=== PATIENT | male | born 1945 | race Caucasian/White ===

== ENCOUNTER 2020-08-27 16:06 | Inpatient (IN) | payer OTHER ==
[~2020-08-27] VITALS: Ht 172.7 cm; Wt 88.5 kg
[2020-08-27] MEDS ORDERED: ACETAMINOPHEN ES 500 MG TABLET PO ONE (16:30)
[2020-08-27] MEDS ORDERED: IV NORMAL SALINE 1000 ML BAG IV ONE ×2 (16:30→20:00)
[2020-08-27] MEDS ORDERED: VANCOMYCIN IV 1,000 MG in IV DEXTROSE 5% 250 ML IV ONE (16:45)
[2020-08-27] MEDS ORDERED: levoFLOXacin 750 MG/D5W 150 ML PIGGYBACK IV ONE (16:45)
[2020-08-27] MEDS ORDERED: levoFLOXacin 750MG/D5W 150 ML IV ONE (16:49)
[2020-08-27] MEDS ORDERED: VANCOMYCIN IV 200 ML ONE (16:49)
[2020-08-27] MEDS ORDERED: ACETAMINOPHEN ES 500 MG TABLET ONE (16:49)
[2020-08-27 16:54] LABS: BASOPHILS # (AUTO) 0.1 K/uL (0.0-8.0); BASOPHILS % (AUTO) 0.4 % (0.0-2.0); EOSINOPHILS # (AUTO) 0.1 K/uL (0.0-0.7); EOSINOPHILS % (AUTO) 0.5 % (0.0-7.0); HEMATOCRIT 42.6 % (36.7-47.1); HEMOGLOBIN 14.6 g/dL (12.5-16.3); LYMPHOCYTES # (AUTO) 1.4 K/uL (20.0-40.0); LYMPHOCYTES % (AUTO) 5.4 % (20.5-51.5); MEAN CORPUSCULAR HEMOGLOBIN 31.5 uug (23.8-33.4); MEAN CORPUSCULAR HGB CONC 34 g/dL (32.5-36.3); MEAN CORPUSCULAR VOLUME 92.1 fL (73.0-96.2); MONOCYTES # (AUTO) 1.2 K/uL (2.0-10.0); MONOCYTES % (AUTO) 4.8 % (0.0-11.0); NEUTROPHILS # (AUTO) 22.7 K/uL (1.8-8.9); NEUTROPHILS % (AUTO) 88.9 % (38.5-71.5); PLATELET COUNT (AUTO) 192 K/uL (152-348); RED BLOOD CELL COUNT(AUTO) 4.62 MIL/uL (4.06-5.63); WHITE BLOOD COUNT (AUTO) 25.5 K/uL (3.6-10.2)
[2020-08-27 17:05] LABS: CREATININE 1.3 mg/dL (0.6-1.3); POTASSIUM 3.5 mmol/L (3.5-5.1)
[2020-08-27 17:17] LABS: BILIRUBIN,TOTAL 1.2 mg/dL (0.2-1.0)
[2020-08-27] MEDS ORDERED: ENOXAPARIN SODIUM 80 MG/0.8 ML DISP.SYRIN SQ ONE (17:30)
[2020-08-27] MEDS ORDERED: ENOXAPARIN SODIUM 100 MG/ML DISP.SYRIN SQ ONE (17:38)
[2020-08-27] MEDS ORDERED: SWABABLE VALVE TRANSFER SET EA MC ONE (17:46)
[2020-08-27] MEDS ORDERED: IOHEXOL 350 100 ML INFUS..BTL ONE (17:46)
[2020-08-27] MEDS ORDERED: IV NORMAL SALINE 250 ML IV ONE (17:46)
[2020-08-27 19:20] LABS: BAND % (MANUAL) 6 % (0-10); LYMPHOCYTES % (MANUAL) 4 % (20-40); MONOCYTES % (MANUAL) 1 % (2-10); NEUTROPHILS % (MANUAL) 89 % (42-75)
[2020-08-27] MEDS ORDERED: DILTIAZEM HCL 50 MG IV ONE (19:56)
[2020-08-27] MEDS ORDERED: DILTIAZEM HCL IV 125 MG in IV NORMAL SALINE 100 ML IV STA ×2 (19:59→20:06)
[2020-08-27] MEDS ORDERED: DILTIAZEM HCL 25 MG IV IV ONE (20:00)
[2020-08-27 22:09] VITALS: BP 112/69
[2020-08-27 22:30] VITALS: BP 121/60
[2020-08-27 23:00] VITALS: BP 126/63
[2020-08-27] MEDS ORDERED: MORPHINE SULFATE 2 MG/1 ML DISP.SYRIN IV PRN (23:00)
[2020-08-27] MEDS ORDERED: ACETAMINOPHEN 325 MG TABLET PO PRN (23:00)
[2020-08-27] MEDS ORDERED: ONDANSETRON 4 MG/2 ML VIAL IV PRN (23:00)
[2020-08-27] MEDS ORDERED: AMIODARONE HCL IV 450 MG in IV DEXTROSE 5% 250 ML IV PRN (23:00)
[2020-08-27 23:30] VITALS: BP 115/64
[2020-08-27 23:40] LABS: *BILIRUBIN,URIN NEGATIVE (NEGATIVE); *BLOOD, URINE NEGATIVE (NEGATIVE); *CLARITY,URINE CLEAR (CLEAR); *COLOR,URINE DARK YELLOW (YELLOW); *KETONES,URINE 1+ (NEGATIVE); *UROBILINOGEN,URINE 0.2 E.U./dl (NORMAL); LEUKOCYTE ESTERASE ,URINE NEGATIVE (NEGATIVE); NITRITE, URINE NEGATIVE (NEGATIVE); PH,URINE 6.5 (5.0-8.0); UGLUCOSE NEGATIVE (NEGATIVE)
[2020-08-28] VITALS (33 sets, daily range): BP systolic 96–141; BP diastolic 49–74
[2020-08-28] MEDS ORDERED: PIPERACILLIN/TAZOBACTAM/D5W 50 ML IV ONE ×2 (00:12→05:42)
[2020-08-28 00:25] LABS: BACTERIA,URINE NONE SEEN /HPF (NONE SEEN); RBC,URINE 0-3 /HPF (0-3); SQUAMOUS EPITHELIAL CELL,UR NONE SEEN /HPF (NONE SEEN); URINE AMORPHOUS URATE FEW /HPF; WBC,URINE 0-3 /HPF (0-3)
[2020-08-28] MEDS: PIPERACILLIN SODIUM/TAZOBACTAM 3.375 G in IV DEXTROSE 5% 50 ML IV SCH ×4 (00:52→22:00)
[2020-08-28] MEDS: AMIODARONE HCL IV 450 MG in IV DEXTROSE 5% 250 ML IV PRN ×3 (02:54→17:38)
[2020-08-28 05:11] LABS: BASOPHILS % (AUTO) 0.1 % (0.0-2.0); HEMATOCRIT 40.7 % (36.7-47.1); HEMOGLOBIN 13.9 g/dL (12.5-16.3); LYMPHOCYTES # (AUTO) 1.7 K/uL (20.0-40.0); LYMPHOCYTES % (AUTO) 7.6 % (20.5-51.5); MEAN CORPUSCULAR HEMOGLOBIN 31.8 uug (23.8-33.4); MEAN CORPUSCULAR HGB CONC 34 g/dL (32.5-36.3); MONOCYTES # (AUTO) 1.4 K/uL (2.0-10.0); MONOCYTES % (AUTO) 6.2 % (0.0-11.0); NEUTROPHILS # (AUTO) 19.6 K/uL (1.8-8.9); NEUTROPHILS % (AUTO) 86.1 % (38.5-71.5); PLATELET COUNT (AUTO) 171 K/uL (152-348); RED BLOOD CELL COUNT(AUTO) 4.38 MIL/uL (4.06-5.63); WHITE BLOOD COUNT (AUTO) 22.8 K/uL (3.6-10.2)
[2020-08-28 05:27] LABS: BILIRUBIN,TOTAL 1.4 mg/dL (0.2-1.0); CREATININE 1.2 mg/dL (0.6-1.3); MAGNESIUM 1.8 mg/dL (1.8-2.4); PHOSPHOROUS 2.9 mg/dL (2.5-4.9); POTASSIUM 3.4 mmol/L (3.5-5.1); TOTAL PROTEIN, SERUM 7.4 g/dL (6.4-8.2)
[2020-08-28] MEDS: PANTOPRAZOLE SODIUM 40 MG VIAL IV SCH (08:34)
[2020-08-28] MEDS: ASPIRIN EC 81 MG TABLET.DR PO SCH (08:35)
[2020-08-28] MEDS: APIXABAN 5 MG TABLET PO SCH ×2 (08:41→20:55)
[2020-08-28] MEDS: METOPROLOL SUCCINATE XL 25 MG TAB.SR.24H PO SCH ×2 (08:43→09:03)
[2020-08-28] MEDS ORDERED: POTASSIUM CHLORIDE 20 MEQ TAB.PRT.SR PO ONE (08:45)
[2020-08-28] MEDS ORDERED: APIXABAN 2.5 MG TABLET PO SCH (09:00)
[2020-08-28] MEDS: VANCOMYCIN IV 1,250 MG in IV DEXTROSE 5% 250 ML IV SCH (09:50)
[2020-08-28] MEDS ORDERED: Z GUARD REMEDY PASTE 57 GM TUBE TOP PRN (12:30)
[2020-08-28 16:32] LABS: *BILIRUBIN,URIN 1+ (NEGATIVE); *BLOOD, URINE 3+ (NEGATIVE); *CLARITY,URINE SLIGHTLY CLOUDY (CLEAR); *COLOR,URINE YELLOW (YELLOW); *KETONES,URINE NEGATIVE (NEGATIVE); LEUKOCYTE ESTERASE ,URINE NEGATIVE (NEGATIVE); NITRITE, URINE NEGATIVE (NEGATIVE); UGLUCOSE NEGATIVE (NEGATIVE)
[2020-08-28 16:37] LABS: *CREATININE,URINE 186.6 mg/dL (30-125)
[2020-08-28] MEDS ORDERED: ATORVASTATIN 40 MG TABLET PO SCH (21:00)
[2020-08-28] MEDS ORDERED: DOCUSATE SODIUM 100 MG CAPSULE PO SCH (21:00)
[2020-08-28 21:37] LABS: BACTERIA,URINE NONE SEEN /HPF (NONE SEEN); SQUAMOUS EPITHELIAL CELL,UR NONE SEEN /HPF (NONE SEEN); URINE AMORPHOUS URATE MODERATE /HPF; WBC,URINE 0-3 /HPF (0-3)
[2020-08-29] VITALS (12 sets, daily range): BP systolic 113–131; BP diastolic 60–74
[2020-08-29] MEDS: VANCOMYCIN IV 1,250 MG in IV DEXTROSE 5% 250 ML IV SCH (04:08)
[2020-08-29] MEDS: PIPERACILLIN SODIUM/TAZOBACTAM 3.375 G in IV DEXTROSE 5% 50 ML IV SCH ×2 (06:34→14:03)
[2020-08-29 07:34] LABS: CREATININE 1.1 mg/dL (0.6-1.3); MAGNESIUM 1.9 mg/dL (1.8-2.4); PHOSPHOROUS 2.1 mg/dL (2.5-4.9); POTASSIUM 3.4 mmol/L (3.5-5.1); URIC ACID 4.3 mg/dL (3.5-7.2)
[2020-08-29] MEDS: PANTOPRAZOLE SODIUM 40 MG VIAL IV SCH (08:06)
[2020-08-29] MEDS: ASPIRIN EC 81 MG TABLET.DR PO SCH (08:06)
[2020-08-29] MEDS: APIXABAN 5 MG TABLET PO SCH (08:07)
[2020-08-29 08:16] LABS: THYROID STIMULATING HORMONE 0.798 mIU/mL (0.358-3.740)
[2020-08-29] MEDS: METOPROLOL SUCCINATE XL 25 MG TAB.SR.24H PO SCH (08:56)
[2020-08-29] MEDS ORDERED: METOPROLOL TARTRATE 25 MG TABLET PO SCH (09:00)
[2020-08-29] MEDS ORDERED: POTASSIUM CHLORIDE 20 MEQ TAB.PRT.SR PO ONE ×2 (09:15→14:00)
[2020-08-29 11:31] LABS: BASOPHILS # (AUTO) 0.1 K/uL (0.0-8.0); BASOPHILS % (AUTO) 0.5 % (0.0-2.0); EOSINOPHILS # (AUTO) 0.1 K/uL (0.0-0.7); EOSINOPHILS % (AUTO) 0.3 % (0.0-7.0); HEMATOCRIT 36.7 % (36.7-47.1); HEMOGLOBIN 12.6 g/dL (12.5-16.3); LYMPHOCYTES # (AUTO) 1.7 K/uL (20.0-40.0); LYMPHOCYTES % (AUTO) 8.8 % (20.5-51.5); MEAN CORPUSCULAR HEMOGLOBIN 31.9 uug (23.8-33.4); MEAN CORPUSCULAR HGB CONC 34 g/dL (32.5-36.3); MEAN CORPUSCULAR VOLUME 93.1 fL (73.0-96.2); MONOCYTES # (AUTO) 1.1 K/uL (2.0-10.0); MONOCYTES % (AUTO) 5.8 % (0.0-11.0); NEUTROPHILS # (AUTO) 16.1 K/uL (1.8-8.9); NEUTROPHILS % (AUTO) 84.6 % (38.5-71.5); PLATELET COUNT (AUTO) 190 K/uL (152-348); RED BLOOD CELL COUNT(AUTO) 3.94 MIL/uL (4.06-5.63); WHITE BLOOD COUNT (AUTO) 19.1 K/uL (3.6-10.2)
[2020-08-29] MEDS ORDERED: DOCU100C36 PO (12:54)
[2020-08-29] MEDS ORDERED: Morphine Sulfate Inj IV (12:54)
[2020-08-29] MEDS ORDERED: ATOR40TA PO (12:54)
[2020-08-29] MEDS ORDERED: ONDA4VIA23 IV (12:54)
[2020-08-29] MEDS ORDERED: MENT71OI TOP (12:54)
[2020-08-29] MEDS ORDERED: PANT40SU2 PO (12:54)
[2020-08-29] MEDS ORDERED: ASPI-618 PO (12:54)
[2020-08-29] MEDS ORDERED: PIPE3.379 IV (12:54)
[2020-08-29] MEDS ORDERED: ACET325T53 PO (12:54)
[2020-08-29] MEDS ORDERED: METO-356 PO (12:54)
[2020-08-29] MEDS ORDERED: APIX5TAB PO (12:54)
[2020-08-29] MEDS ORDERED: RXVAN XX (12:54)
[2020-08-29] MEDS ORDERED: NEUTRA PHOS PACKET PO ONE (16:15)
[2020-08-30] MEDS ORDERED: PANTOPRAZOLE ORAL SUSPENSION 40 MG SUSPDR.PKT PO SCH (09:00)
== END 2020-08-29 18:37 | disposition short-term general hospital (02) | DRG 871 ==
LOC: ER 16:07 → CCU 21:34
PROVIDERS: ADMIT Internal Medicine; ATTEND Internal Medicine
DX: A41.9 Sepsis, unspecified organism (principal); I50.23 Acute on chronic systolic (congestive) heart failure; I21.A1 Myocardial infarction type 2; N17.0 Acute kidney failure with tubular necrosis; E44.0 Moderate protein-calorie malnutrition; E87.1 Hypo-osmolality and hyponatremia; I48.92 Unspecified atrial flutter; L03.116 Cellulitis of left lower limb; L97.929 Non-pressure chronic ulcer of unspecified part of left lower leg with unspecified severity; E11.40 Type 2 diabetes mellitus with diabetic neuropathy, unspecified; E66.9 Obesity, unspecified; F03.90 Unspecified dementia, unspecified severity, without behavioral disturbance, psychotic disturbance, mood disturbance, and anxiety; I25.10 Atherosclerotic heart disease of native coronary artery without angina pectoris; I25.2 Old myocardial infarction; M21.612 Bunion of left foot; M21.611 Bunion of right foot; Z95.1 Presence of aortocoronary bypass graft; I48.91 Unspecified atrial fibrillation; E11.621 Type 2 diabetes mellitus with foot ulcer; Z68.29 Body mass index [BMI] 29.0-29.9, adult; I11.0 Hypertensive heart disease with heart failure; E87.6 Hypokalemia
CPT/HCPCS: 36415; 70030-TC; 71045; 71275; 73590; 83605; 83615; 83735; 84100; 84156; 84300; 84443; 84550; 85025; 85730; 86140; 87040; 87077; 87086; 93005; 93307; A4663; A9150; C9113; G0378; J0282; J1650; J1956; J2543; J3370; J3490; J7030; J7040; J7050; J7060; Q9967; U0003